=== PATIENT | female | born 1945 | race Caucasian/White ===

== ENCOUNTER 2018-08-02 12:38 | Emergency (ER) | payer MEDICARE, BC ==
[~2018-08-02] VITALS: Ht 165.1 cm; Wt 68.9 kg
--- NOTE | 2018-08-02 13:51 | PHYS DOC ---
Past History Past Medical History: GERD, Hypertension Past Surgical History: No Surgical History Alcohol Use: None Drug Use: None Adult General Chief Complaint Chief Complaint: NOSEBLEED [facility] HPI 73-year-old female presents with right-sided nosebleed. Patient states that it started overnight hour prior to arrival. She cannot remember ever having a nosebleed. She was frightened by it because she could not get it to stop. She was not exactly sure how to manage the nosebleed herself. She tried some compression and some towels against it but nothing seemed to work. The patient is not on a blood thinners or antiplatelets therapy. On arrival to the ED, it did seem to be slowing. Patient denies nausea, vomiting, dizziness, headache. She has no other complaints. Review of Systems Review of Systems Constitutional: Denies fever or chills [] Eyes: Denies change in visual acuity, redness, or eye pain [] HENT: Denies nasal congestion or sore throat. Nosebleed.[] Respiratory: Denies cough or shortness of breath [] Cardiovascular: No additional information not addressed in HPI [] GI: Denies abdominal pain, nausea, vomiting, bloody stools or diarrhea [] : Denies dysuria or hematuria [] Musculoskeletal: Denies back pain or joint pain [] Integument: Denies rash or skin lesions [] Neurologic: Denies headache, focal weakness or sensory changes [] Endocrine: Denies polyuria or polydipsia [] All other systems were reviewed and found to be within normal limits, except as documented in this note. Physical Exam Physical Exam Constitutional: Well developed, well nourished, no acute distress, non-toxic appearance. [] HENT: Normocephalic, atraumatic, bilateral external ears normal, oropharynx moist, no oral exudates, nose with evidence of dried blood in the right naris [] Eyes: PERRLA, EOMI, conjunctiva normal, no discharge. [] Neck: Normal range of motion, no tenderness, supple, no stridor. [] Cardiovascular:Heart rate regular rhythm, no murmur [] Lungs & Thorax: Bilateral breath sounds clear to auscultation [] Abdomen: Bowel sounds normal, soft, no tenderness, no masses, no pulsatile masses. [] Skin: Warm, dry, no erythema, no rash. [] Back: No tenderness, no CVA tenderness. [] Extremities: No tenderness, no cyanosis, no clubbing, ROM intact, no edema. [] Neurologic: Alert and oriented X 3, normal motor function, normal sensory funct ion, no focal deficits noted. [] Psychologic: Affect normal, judgement normal, mood normal. [] Current Patient Data Vital Signs Vital Signs Date Time Temp Pulse Resp B/P (MAP) Pulse Ox O2 Delivery O2 Flow Rate FiO2 08/02/18 12:53 98.1 71 18 98 Room Air EKG EKG [] Radiology/Procedures Radiology/Procedures [] Course & Med Decision Making Course & Med Decision Making Pertinent Labs and Imaging studies reviewed. (See chart for details) Direct pressure was applied to the patient's nose on arrival to the ED. We were able to get the bleeding controlled without complication. She has had no further bleeding. She is stable for discharge at this time. [] Dragon Disclaimer Dragon Disclaimer This electronic medical record was generated, in whole or in part, using a voice recognition dictation system. Departure Departure: Impression: Primary Impression: Right-sided nosebleed Disposition: 01 HOME, SELF-CARE Condition: STABLE Referrals: ALBERT PERDOMO MD (PCP) Patient Instructions: Nosebleed, [id number] JELANI CLANCY DO Aug 02, 2018 13:51
[2018-08-02 13:55] VITALS: BP 126/65
== END 2018-08-02 13:55 | disposition home or self-care (01) ==
LOC: ER 12:38
DX: R04.0 Epistaxis (principal); K21.9 Gastro-esophageal reflux disease without esophagitis; I10 Essential (primary) hypertension
CPT/HCPCS: 99281

== ENCOUNTER 2020-12-26 13:48 | Emergency (ER) | payer BC ==
[~2020-12-26] VITALS: Ht 157.5 cm; Wt 62.4 kg
--- NOTE | 2020-12-26 14:18 | PHYS DOC ---
Past History Past Medical History: GERD, Hypertension (HANS MURO APRN) Past Surgical History: No Surgical History (HANS MURO APRN) Alcohol Use: None Drug Use: None (HANS MURO APRN) Adult General Chief Complaint Chief Complaint: ABDOMINAL PAIN HPI HPI Patient is a 75-year-old female who presents to the emergency department complaining of a 3-day, patient reports her pain is a 10 out of 10 but seem to come and go. Patient reports diarrhea for every stool for the past 3 days as well. She does report a 10-year history of colitis and when she takes medications for. Patient does report her symptoms seem to have resolved as soon as she arrived in the emergency department and currently has no pain or discomfort or complaints. Patient denies recent fever chills, denies chest pains or shortness of breath, chest or nasal congestion. Patient denies other physical complaints or physical concerns. (HANS MURO APRN) Review of Systems Review of Systems 14 body systems of review of systems have been reviewed. See HPI for pertinent positives and negative responses, otherwise all other systems are negative, nonpertinent or noncontributory. Constitutional: Negative except as outlined in HPI above. Skin: Negative except as outlined in HPI above. Eyes: Negative except as outlined in HPI above. HENT: Negative except as outlined in HPI above. Respiratory: Negative except as outlined in HPI above. Cardiovascular: Negative except as outlined in HPI above. GI: Negative except as outlined in HPI above. : Negative except as outlined in HPI above. Musculoskeletal: Negative except as outlined in HPI above. Integument: Negative except as outlined in HPI above. Neurologic: Negative except as outlined in HPI above. Endocrine: Negative except as outlined in HPI above. Lymphatic: Negative except as outlined in HPI above. Psychiatric: Negative except as outlined in HPI above. (HANS MURO APRN) Allergies Allergies Allergies Coded Allergies Type Severity Reaction Last Updated Verified No Known Drug Allergies 12/26/20 No (HANS MURO APRN) Physical Exam Physical Exam Constitutional: Well developed, well nourished, no acute distress, non-toxic appearance. 75-year-old female in no apparent distress. HENT: Normocephalic, atraumatic. Eyes: Conjunctiva normal, no discharge. Neck: Normal range of motion, no stridor. Cardiovascular: No cyanosis appreciated, distal cap refill less than 2 seconds. Lungs & Thorax: Patient is in no respiratory distress, no audible adventitious lung sounds appreciated. Abdomen: Nontender, no abnormalities noted. Skin: Warm, dry, no erythema, no rash. Back: No tenderness, no deformities. Extremities: No tenderness, no cyanosis, no clubbing, ROM intact, no edema. Neurologic: Alert and oriented X 3, normal motor function, normal sensory function, no focal deficits noted. Psychologic: Affect normal, judgement normal, mood normal. (HANS MURO APRN) Current Patient Data Vital Signs Vital Signs Date Time Temp Pulse Resp B/P (MAP) Pulse Ox O2 Delivery O2 Flow Rate FiO2 12/26/20 14:08 98.1 79 16 150/54 (86) 97 (HANS MURO APRN) EKG EKG [] (HANS MURO APRN) Radiology/Procedures Radiology/Procedures STATUS: REG ER ORD. PHYSICIAN: HANS MUOR APRN REASON: RLQ PAIN, DIARRHEA X3 DAYS PROCEDURE: CT ABD PELV W/ IV CONTRST ONLY CT ABDOMEN+PELVIS W History: Right lower quadrant pain. Diarrhea. Comparison: None available. Technique: CT of the abdomen and pelvis with intravenous and oral contrast. Findings: Atelectatic/senescent fibrotic changes in the lung bases. No effusion. Mildly patulous esophagus. The liver, gallbladder, pancreas, adrenal glands and spleen are unremarkable. Subcentimeter hypodensities in the upper pole right kidney are too small to characterize, likely cysts. No hydronephrosis or nephrolithiasis. The bladder is unremarkable. The uterus is surgically absent. Mild gastric wall thickening likely due to underdistention. No small bowel dilatation. The appendix is not discretely visualized. No evidence of appendicitis. There is moderate sigmoid diverticulosis with irregular wall thickening of the distal sigmoid colon and rectum. Mild inflammatory stranding of the adjacent pelvic fat. Shotty pelvic lymph nodes. Aorta iliac atherosclerotic calcification without aneurysm. Soft tissues are unremarkable. Multilevel degenerative changes of the lumbar spine. Impression: 1. Irregular wall thickening of the distal sigmoid colon and rectum with adjacent inflammatory fat stranding. Findings may represent diverticulitis or colitis. Underlying neoplasm cannot be excluded. Recommend colonoscopy following resolution of acute symptoms. ------ Exposure: One or more of the following individualized dose reduction techniques were utilized for this examination: 1. Automated exposure control 2. Adjustment of the mA and/or kV according to patient size 3. Use of iterative reconstruction technique. Electronically signed by: Gucci Briceno MD (12/26/2020 4:23 PM) [id number] (HANS MURO APRN) Heart Score C/O Chest Pain: No Risk Factors: Risk Factors: DM, Current or recent (<one month) smoker, HTN, HLP, family history of CAD, obesity. Risk Scores: Risk Factors: DM, Current or recent (<one month) smoker, HTN, HLP, family history of CAD, obesity. (HANS MURO APRN) Course & Med Decision Making Course & Med Decision Making Pertinent Labs and Imaging studies reviewed. (See chart for details) 75-year-old female, vital signs reviewed, presents to the emergency department with chief complaint of right lower quadrant pains. Patient reports complaints of pains have resolved just prior to being examined here in the emergency department. Patient physical examination is unremarkable. Patient does have a 10-year history of colitis and did report 3 days of diarrhea. There is a like lihood of mild dehydration related to diarrhea spells, will establish IV/saline lock, CBC, CMP, urinalysis assay. The patient's urine is not infected, patient's CBC and CMP lab work unremarkable, patient's CT abdomen pelvis reveals colitis however patient is pain-free and symptom-free at this time, does report close follow-up with GI specialty and is on medication for chronic colitis over the past 10 years. Discussed findings of CT abdomen pelvis with patient, patient reports she is aware and is heard of this colitis diagnosis before. Patient reports she has an upcoming appointment with her GI specialist and will keep that appointment. Patient remains pain-free, symptom-free, hemodynamically stable at discharge time. Discussed with patient strict follow-up with primary care soon, keep all future GI appointments, patient is amenable to ED discharge planning. Discussed with the patient all findings and diagnostic testing as well as the need to follow-up with their primary care provider for further evaluation and treatment or return to the ED if any new or worsening symptoms. Strict return precautions were also discussed at length, the patient voiced understanding and agreement with the discharge planning. The patient was nontoxic in appearance, in no apparent distress, and hemodynamically stable at the time of disposition. (HANS MURO APRN) Course & Med Decision Making I was the Attending physician on the above date of service of this patient. This patient was evaluated, examined, treated, and dispositioned from the emergency department by the mid-level practitioner. Although I was working at the time , no assistance was requested. Electronically signed, Garcia Armendariz DO (GARCIA ARMENDARIZ DO) Raul Disclaimer Draggwyn Disclaimer This electronic medical record was generated, in whole or in part, using a voice recognition dictation system. (HANS MURO APRN) Departure Departure: Impression: Primary Impression: Feared condition not demonstrated Disposition: HOME / SELF CARE / HOMELESS Condition: GOOD Referrals: ALBERT PERDOMO MD (PCP) Additional Instructions: You were seen today for abdominal pain however your abdominal pain had subsided prior to your arrival to the emergency department. An extensive abdominal work- up was performed today in the emergency department, your lab work and urine did not show any signs of infection or abnormalities that are concerning. Your CT of the abdomen and pelvis continue to show your chronic colitis problems. Please keep all future appointments with your GI specialist and let them know of your emergency room visit today. Please return to the emergency department for return of pain or other concerns. Thank you for visiting our Emergency Department. It was a pleasure taking care of you today in the emergency department and we appreciate you trusting us with your care. If any additional problems come up don't hesitate to return to visit us. Please follow up with your primary care provider so they can plan additional care if needed and know about the problem that you had. If symptoms worsen come back to the Emergency Department. Any concerning symptoms that start such as chest pain, shortness of air, weakness or numbness on one side of the body, running high fevers or any other concerning symptoms return to the ER. EMERGENCY DEPARTMENT GENERAL DISCHARGE INSTRUCTIONS Thank you for coming to [facility] (ED) today and trusting us with you care. We trust that you had a positivie experience in our Emergency Department. If you wish to speak to the department management, you may call the director at [phone]. YOUR FOLLOW UP INSTRUCTIONS ARE FOLLOWS: 1. Do you have a private Doctor? If you do not have a private doctor, please ask for a resource list of physicians or clinics that may be able to assist you with follow up care. 2. The Emergency Physician has interpreted your x-rays. The X-Ray specialist will also review them. If there is a change in the findings, you will be notified in 48 hours when at all possible. 3. A lab test or culture has been done, your results will be reviewed and you will be notified if you need a change in treatment. ADDITIONAL INSTRUCTIONS AND INFORMATION: 1. Your care today has been supervised by a physician who is specially trained in emergency care. Many problems require more than one evaluation for a complete diagnosis and treatment. We recommend that you schedule your follow up appointment as recommended to ensure complete treatment of you illness or injury. If you are unable to obtain follow up care and continue to have a problem, or if your condition worsens, we recommend that you return to the ED. 2. We are not able to safely determine your condition over the phone nor are we able to give sound medical advice over the phone. For these safety reasons, if you call for medical advice we will ask you to come to the ED for further evaluation. 3. If you have any questions regarding these discharge instructions please call the ED at [phone]. SAFETY INFORMATION: In the interest of safety, wellness, and injury prevention; we encourage you to wear your sealbelt, if you smoke; quite smoking, and we encourage family to use a protective helmet for bicycling and other sporting events that present an increased risk for head injury. IF YOUR SYMPTOMS WORSEN OR NEW SYMPTOMS DEVELOP, OR YOU HAVE CONCERNS ABOUT YOUR CONDITION; OR IF YOUR CONDITION WORSENS WHILE YOU ARE WAITING FOR YOUR FOLLOW UP APPOINTMENT; EITHER CONTACT YOUR PRIMARY CARE DOCTOR, THE PHYSICIAN WHOSE NAME AND NUMBER YOU WERE GIVEN, OR RETURN TO THE ED IMMEDIATELY. HANS MURO APRN Dec 26, 2020 14:18 GARCIA ARMENDARIZ DO Dec 27, 2020 06:19
[2020-12-26 15:00] LABS: BASO # 0.1 x10^3/uL (0.0-0.2); BASO % 1 % (0-3); EOS # 0.1 x10^3/uL (0.0-0.7); EOS % 2 % (0-3); HEMATOCRIT 44.9 % (36.0-47.0); HEMOGLOBIN 14.9 g/dL (12.0-15.5); LYMPH # 2.2 x10^3/uL (1.0-4.8); LYMPH % 24 % (24-48); MEAN CORPUSCULAR HEMOGLOBIN 30 pg (25-35); MEAN CORPUSCULAR HGB CONC 33 g/dL (31-37); MEAN CORPUSCULAR VOLUME 91 fL (79-100); MONO # 0.8 x10^3/uL (0.0-1.1); MONO % 8 % (0-9); NEUT # 6.2 x10^3uL (1.8-7.7); NEUT % 66 % (31-73); PLATELET COUNT 200 x10^3/uL (140-400); RED BLOOD COUNT 4.91 x10^6/uL (3.50-5.40); WHITE BLOOD COUNT 9.4 x10^3/uL (4.0-11.0)
[2020-12-26 15:10] LABS: CALCIUM 10.8 mg/dL (8.5-10.1); CREATININE 0.8 mg/dL (0.6-1.0); GFR 69.6; POTASSIUM 3.8 mmol/L (3.5-5.1)
[2020-12-26 15:15] LABS: ALBUMIN 3.6 g/dL (3.4-5.0); TOTAL BILIRUBIN 0.3 mg/dL (0.2-1.0); TOTAL PROTEIN 7.2 g/dL (6.4-8.2)
[2020-12-26 15:24] LABS: BACTERIA,URINE 0 /HPF (0-FEW); BILIRUBIN,URINE NEG (NEG); CLARITY,URINE CLEAR; COLOR,URINE YELLOW; GLUCOSE,URINE NEG (NEG); NITRITE,URINE NEG (NEG); RBC,URINE 0 /HPF (0-2); SQUAMOUS EPITHELIAL CELL,UR FEW /LPF; UROBILINOGEN,URINE 0.2 mg/dL (0.2 mg/dL); WBC,URINE 0 /HPF (0-4)
[2020-12-26] MEDS ORDERED: IOHEXOL 300 MG/ML 75 ML VIAL. IV ONE (15:45)
--- NOTE | 2020-12-26 16:25 | RAD ---
CT ABDOMEN+PELVIS W History: Right lower quadrant pain. Diarrhea. Comparison: None available. Technique: CT of the abdomen and pelvis with intravenous and oral contrast. Findings: Atelectatic/senescent fibrotic changes in the lung bases. No effusion. Mildly patulous esophagus. The liver, gallbladder, pancreas, adrenal glands and spleen are unremarkable. Subcentimeter hypodensi ties in the upper pole right kidney are too small to characterize, likely cysts. No hydronephrosis or nephrolithiasis. The bladder is unremarkable. The uterus is surgically absent. Mild gastric wall thickening likely due to underdistention. No small bowel dilatation. The appendix i s not discretely visualized. No evidence of appendicitis. There is moderate sigmoid diverticulosis wi th irregular wall thickening of the distal sigmoid colon and rectum. Mild inflammatory stranding of t he adjacent pelvic fat. Shotty pelvic lymph nodes. Aorta iliac atherosclerotic calcification without aneurysm. Soft tissues are unremarkable. Multilevel degenerative changes of the lumbar spine. Impression: 1. Irregular wall thickening of the distal sigmoid colon and rectum with adjacent inflammatory fat s tranding. Findings may represent diverticulitis or colitis. Underlying neoplasm cannot be excluded. R ecommend colonoscopy following resolution of acute symptoms. ------ Exposure: One or more of the following individualized dose reduction techniques were utilized for thi s examination: 1. Automated exposure control 2. Adjustment of the mA and/or kV according to patient size 3. Use of iterative reconstruction technique. Electronically signed by: Gucci Briceno MD (12/26/2020 4:23 PM) [id number]
[2020-12-26 17:24] VITALS: BP 135/62
== END 2020-12-26 17:25 | disposition home or self-care (01) ==
LOC: ER 13:48
DX: Z71.1 Person with feared health complaint in whom no diagnosis is made (principal); R19.7 Diarrhea, unspecified; K21.9 Gastro-esophageal reflux disease without esophagitis; I10 Essential (primary) hypertension
CPT/HCPCS: 36415; 74177; 80053; 81001; 83690; 85025; 99285; Q9967

== ENCOUNTER 2020-12-28 08:10 | Emergency (ER) | payer MEDICARE, BC ==
[~2020-12-28] VITALS: Ht 157.5 cm; Wt 62.4 kg
[2020-12-28 08:25] VITALS: BP 107/62
--- NOTE | 2020-12-28 08:44 | PHYS DOC ---
Past History Past Medical History: GERD, Hypertension Additional Past Medical Histor: UC Past Surgical History: No Surgical History Alcohol Use: None Drug Use: None Adult General Chief Complaint Chief Complaint: RECTAL BLEED HPI HPI Patient is a 75-year-old female presenting for rectal issues. This is an acute on chronic issue. She reports she has dementia and so, history is somewhat limited. Does appear that she has ulcerative colitis per medication history although patient states she does not think she is ever had a colonoscopy. States over the last month she has had episodes of alternating diarrhea with constipation. She reports past 72 hours having more painful rectal area to touch and when wiping with occasional streaks of bright red blood. She is not taking anything in attempt to alleviate her symptoms. Ongoing symptoms this morning prompted her to come in for evaluation. Review of Systems Review of Systems Fourteen body systems of review of systems have been reviewed. See HPI for pertinent positives and negative responses, other graf all other systems are negative, non-pertinent or non-contributory Allergies Allergies Allergies Coded Allergies Type Severity Reaction Last Updated Verified No Known Drug Allergies 12/28/20 No Physical Exam Physical Exam Constitutional: Well developed, well nourished, no acute distress, non-toxic appearance. HENT: Normocephalic, atraumatic, bilateral external ears normal, oropharynx moist, no oral exudates, nose normal. Eyes: PERRLA, EOMI, conjunctiva normal, no discharge. Neck: Normal range of motion, no tenderness, supple, no stridor. Cardiovascular: Heart rate regular, sinus rhythm, no murmurs rubs or gallops Lungs & Thorax: Bilateral breath sounds clear to auscultation Abdomen: Bowel sounds normal, soft, no tenderness, no masses, no pulsatile masses. Nonsurgical abdomen, no peritoneal signs : External anus has several nonthrombosed external hemorrhoids present at 12, 3:00 and 8:00 positions. Patient has adequate rectal tone. No palpable abnormalities present within rectal vault. No blood Skin: Warm, dry, no erythema, no rash. Back: No tenderness, no CVA tenderness. Extremities: No tenderness, no cyanosis, no clubbing, ROM intact, no edema. Neurologic: Alert and oriented X 3, grossly normal motor & sensory function, no focal deficits noted. Psychologic: Affect normal, judgement normal, mood normal. Current Patient Data Vital Signs Vital Signs Date Time Temp Pulse Resp B/P (MAP) Pulse Ox O2 Delivery O2 Flow Rate FiO2 12/28/20 08:25 97.6 66 18 107/62 (77) 93 EKG EKG [] Radiology/Procedures Radiology/Procedures [] Heart Score C/O Chest Pain: No Risk Factors: Risk Factors: DM, Current or recent (<one month) smoker, HTN, HLP, family history of CAD, obesity. Risk Scores: Risk Factors: DM, Current or recent (<one month) smoker, HTN, HLP, family history of CAD, obesity. Course & Med Decision Making Course & Med Decision Making ABCs unremarkable HPI physical exam and comprehensive ER work-up nonconcerning for any emergent or surgical issues Patient suffering from uncomplicated hemorrhoids. Supportive care and close PCP follow-up advised with consideration for GI referral given history of ulcerative colitis Dragon Disclaimer Dragon Disclaimer This electronic medical record was generated, in whole or in part, using a voice recognition dictation system. Departure Departure: Impression: Primary Impression: Hemorrhoids Disposition: HOME / SELF CARE / HOMELESS Condition: STABLE Referrals: ALBERT PERDOMO MD (PCP) Patient Instructions: Hemorrhoids Additional Instructions: As discussed prior to ER departure, your vitals and physical examination were nonconcerning for any emergent or surgical issues. You are likely suffering from hemorrhoids given your issues with irritable bowel syndrome and episodic diarrhea. Please continue conservative care practices that should include sitz bath's, Preparation H ointment which can be bought [id number] and/or Preparation H wipes which can also be bought [id number]. There is no indication for any surgical intervention or removal of your hemorrhoids in the ER setting today. With that said, it is pertinent you follow-up with your primary care physician regarding this issue as this might be needed at a later date. If any concerning signs or symptoms present prior to outpatient follow-up please do not hesitate to come back for repeat evaluation. Is a pleasure to take care of you and I wish you the best going forward GARCIA ARMENDARIZ DO Dec 28, 2020 08:44
== END 2020-12-28 09:10 | disposition home or self-care (01) ==
LOC: ER 08:10
DX: K64.9 Unspecified hemorrhoids (principal); K21.9 Gastro-esophageal reflux disease without esophagitis; I10 Essential (primary) hypertension
CPT/HCPCS: 99282-25